=== PATIENT | female | born 1985 | race Caucasian/White ===

== ENCOUNTER 2021-05-01 16:36 | Observation (INO) | payer BC, OTHER ==
[~2021-05-01] VITALS: Ht 162.6 cm; Wt 90.7 kg
[~2021-05-01 16:36] MED LIST: FIORICET TAB1 EA PO; TORADOL 10 MG T10 MG PO; ZOFRAN ODT 4 MG4 MG SL
[2021-05-01 17:34] LABS: HEMOGLOBIN 13.7 gm/dl (12.3-15.3); RED BLOOD COUNT 4.43 M/UL (4.00-5.10); WHITE BLOOD COUNT 8.3 K/UL (4.5-11.0)
[2021-05-01 17:54] LABS: BUN/CREATININE RATIO 13 (0-10)
[2021-05-01] MEDS ORDERED: BUSPIRONE HCL5 MG PO (22:48)
[2021-05-01] MEDS ORDERED: FLUOXETINE HCL40 MG PO (22:48)
[2021-05-01] MEDS ORDERED: VENTOLIN HFA 66.7 GM INH (22:49)
[2021-05-01] MEDS ORDERED: LAMOTRIGINE100 MG PO (22:49)
[2021-05-01] MEDS ORDERED: ALLEGRA ALLERG180 MG PO (22:50)
--- NOTE | 2021-05-02 11:38 | NUR ---
1030- BLADDER SCAN 286ML OF URINE. STRAIGHT CATH PER STERILE TECHNIQUE WITH 400ML OF YELLOW URINE.
[2021-05-04] MEDS ORDERED: CYCLOBENZAPRINE10 MG PO (08:23)
[2021-05-04] MEDS ORDERED: DECADRON6 MG PO (13:21)
== END 2021-05-04 14:22 | disposition home or self-care (01) ==
LOC: ER1 16:36 → CDU 20:26 → M/S 20:26
PROVIDERS: Emergency Medicine; ADMIT Internal Medicine
DX: M51.26 Other intervertebral disc displacement, lumbar region (principal); J45.909 Unspecified asthma, uncomplicated; N93.8 Other specified abnormal uterine and vaginal bleeding; Z20.822 Contact with and (suspected) exposure to COVID-19; M47.9 Spondylosis, unspecified; F43.10 Post-traumatic stress disorder, unspecified; F42.9 Obsessive-compulsive disorder, unspecified; G89.29 Other chronic pain; E66.9 Obesity, unspecified; Z68.34 Body mass index [BMI] 34.0-34.9, adult
CPT/HCPCS: 36415; 72131; 80053; 80307; 81001; 84703; 85025; 87040; 96372; 96374; 96375; 96376; 97110; 97161; 97530-GP-CQ; 99284; G0378; J1170; J1650; J2360; J2405; J2930; U0002

== ENCOUNTER → 2021-06-30 | Outpatient (CLI) | payer OTHER ==
[~2021-06-30] MED LIST changes: +ALLEGRA ALLERG180 MG PO; +BUSPIRONE HCL5 MG PO; +CYCLOBENZAPRINE10 MG PO; +DECADRON6 MG PO; +FLUOXETINE HCL40 MG PO; +LAMOTRIGINE100 MG PO; +VENTOLIN HFA 66.7 GM INH
== END ==
LOC: LAB 11:43
PROVIDERS: Nurse Practitioner Family
DX: M25.50 Pain in unspecified joint (principal); R76.8 Other specified abnormal immunological findings in serum; D89.9 Disorder involving the immune mechanism, unspecified
CPT/HCPCS: 36415; 81374; 83520; 85652; 86140; 86200

== ENCOUNTER → 2021-07-17 | Outpatient (CLI) | payer OTHER | LOC: KOH-I 13:00 | DX: M51.26 Other intervertebral disc displacement, lumbar region (principal); M51.37 Other intervertebral disc degeneration, lumbosacral region | CPT/HCPCS: 72148 ==

== ENCOUNTER → 2021-12-12 | Outpatient (CLI) | payer BC, OTHER | LOC: EMI 12-04 11:15 | DX: M47.812 Spondylosis without myelopathy or radiculopathy, cervical region (principal); M50.223 Other cervical disc displacement at C6-C7 level | CPT/HCPCS: 72141 ==